=== PATIENT | female | born 1980 | race Hispanic/Latino ===

== ENCOUNTER 2019-11-12 13:00 | Outpatient (CLI) | payer BC ==
--- NOTE | 2019-11-12 14:44 | Cat Scan Report ---
CT head without contrast INDICATION : R51 CHRONIC HEADACHES. TECHNIQUE: Axial imaging performed from the skull apex through the skull base without the use of con trast. All CT scans at this location are performed using CT dose reduction for ALARA by means of aut omated exposure control. COMPARISON: None FINDINGS: Parenchyma: No acute intracranial hemorrhage or parenchymal abnormality. Ventricles: Ventricles are normal in size and appear symmetric. Soft tissues: Soft tissues including the orbits appear normal. Bones: No acute osseous abnormality. Sinuses: Sinuses and mastoid air cells are clear. IMPRESSION: No acute abnormality. Signer Name: Milton Patel MD Signed: 11/12/2019 2:40 PM Workstation Name: [id number]
== END 2019-11-12 13:01 | disposition home or self-care (01) ==
LOC: CT 13:00
PROVIDERS: ATTEND Family Medicine
DX: R51 Headache (principal)
CPT/HCPCS: 70450

== ENCOUNTER 2019-11-19 12:33 | Outpatient (CLI) | payer BC ==
--- NOTE | 2019-11-19 13:16 | Mammography Report ---
DIGITAL SCREENING MAMMOGRAM WITH CAD, 11/19/2019 INDICATION: Baseline screening mammography. TECHNIQUE: Digital bilateral 2D mammography was obtained in the craniocaudal and mediolateral obliq ue projections. This examination was interpreted with the benefit of Computer-Aided Detection analysi s. COMPARISON: None. FINDINGS: Breast Density: The breasts are heterogeneously dense, which may obscure small masses. Bilateral asymmetries require additional imaging. No architectural distortion or suspicious calcifica tions. IMPRESSION: Bilateral asymmetries requiring additional imaging. Recommend recall for bilateral latera l and bilateral spot compression views and bilateral breast ultrasound if needed Follow up recommendation: Special View: Spot Category 0: Incomplete. Needs additional imaging evaluation and/or prior mammograms for comparison. A "normal" or negative report should not discourage follow up or biopsy of a clinically significant f inding. A written summary of these findings will be mailed to the patient. The patient will be entered into a mammography reporting system which will generate a reminder letter for the patient's next appointmen t at the appropriate interval. The [employer] recommends yearly mammograms starting at age 40 and continuing as l bouchra as a woman is in good health. Breast MRI is recommended for women with an approximate 20-25% or greater lifetime risk of breast cancer, including women with a strong family history of breast or ova negra cancer or who have been treated for Hodgkin's disease. Signer Name: Jerald Porter MD Signed: 11/19/2019 1:11 PM Workstation Name: [id number]
== END 2019-11-19 12:34 | disposition home or self-care (01) ==
LOC: SPVWC 12:33
PROVIDERS: ATTEND Family Medicine
DX: Z12.31 Encounter for screening mammogram for malignant neoplasm of breast (principal)
CPT/HCPCS: 77067

== ENCOUNTER 2019-12-12 08:38 | Outpatient (CLI) | payer BC ==
--- NOTE | 2019-12-12 09:57 | Mammography Report ---
DIGITAL DIAGNOSTIC MAMMOGRAM WITH CAD, 12/12/2019 INDICATION: Recalled to evaluate asymmetries. ABNORMAL MAMMOGRAM TECHNIQUE: Digital bilateral mammographic imaging was performed. Spot compression views were obtaine d. This examination was interpreted with the benefit of Computer-aided Detection analysis. COMPARISON: 11/19/2019 FINDINGS: Breast Density: The breasts are heterogeneously dense, which may obscure small masses. Bilateral lateral and spot compression views were performed and are negative. Satisfactory effacement of asymmetries. IMPRESSION: No mammographic evidence of malignancy. Follow up recommendation: Routine yearly BI-RADS Category 1: Negative. A "normal" or negative report should not discourage follow up or biopsy of a clinically significant f inding. A written summary of these findings will be mailed to the patient. The patient will be entered into a mammography reporting system which will generate a reminder letter for the patient's next appointmen t at the appropriate interval. According to the [employer], yearly mammograms are recommended starting at age 40 and continuing as long as a woman is in good health. Breast MRI is recommended for women with an ronen roximately 20-25% or greater lifetime risk of breast cancer, including women with a strong family his tory of breast or ovarian cancer and women who have been treated for Hodgkin's disease. Signer Name: Jerald Porter MD Signed: 12/12/2019 9:52 AM Workstation Name: [id number]
== END 2019-12-12 08:39 | disposition home or self-care (01) ==
LOC: SPVWC 08:38
PROVIDERS: ATTEND Family Medicine
DX: R92.8 Other abnormal and inconclusive findings on diagnostic imaging of breast (principal)
CPT/HCPCS: 77066

== ENCOUNTER 2020-11-03 14:43 | Outpatient (CLI) | payer BC ==
--- NOTE | 2020-11-03 17:12 | Ultrasound Report ---
ULTRASOUND PELVIS INDICATION / CLINICAL INFORMATION: PELVIC AND PERINEAL PAIN/ POLYCYSTIC OVARIAN SYNDROME. TECHNIQUE: Transabdominal and Transvaginal. Duplex Color Doppler used: Yes. COMPARISON: None available FINDINGS: UTERUS: Uterus measures 8.3 cm in length and is retroverted. Endometrial stripe measures 8 mm. There are several nabothian cysts noted at the cervix. RIGHT ADNEXA: The right ovary measures 3 cm in length. There are multiple follicular cysts noted in t he periphery of the right ovary. These measure less than 1 cm in diameter. Normal color Doppler blood flow. LEFT ADNEXA: No significant ovarian cyst or mass. Normal color Doppler blood flow. URINARY BLADDER: No significant abnormality. FREE FLUID: There is a minimal amount of free fluid ADDITIONAL FINDINGS: None. IMPRESSION: 1. There are multiple small follicular cysts in both ovaries measuring less than 1 cm. Signer Name: Herbie Orona MD Signed: 11/03/2020 5:07 PM Workstation Name: [id number]
== END 2020-11-03 14:44 | disposition home or self-care (01) ==
LOC: SPVWC 14:43
PROVIDERS: ATTEND Family Medicine
DX: N83.02 Follicular cyst of left ovary (principal); N83.01 Follicular cyst of right ovary; N88.8 Other specified noninflammatory disorders of cervix uteri; E28.2 Polycystic ovarian syndrome
CPT/HCPCS: 76830; 76856

== ENCOUNTER 2020-11-26 13:48 | Outpatient (CLI) | payer BC ==
--- NOTE | 2020-11-30 08:27 | Mammography Report ---
DIGITAL SCREENING MAMMOGRAM WITH TOMOSYNTHESIS WITH CAD, 11/26/2020 CLINICAL INFORMATION / INDICATION: Routine Screening Mammography. TECHNIQUE: Digital bilateral 2D and 3D mammography with tomosynthesis was obtained in the craniocaud al and mediolateral oblique projections. Computer-Aided Detection (CAD) analysis was used for interp retation of this study. COMPARISON: 11/19/2019 FINDINGS: Breast Density: There are scattered areas of fibroglandular density. No dominant mass, suspicious calcifications, or architectural distortion in either breast. No interval change. IMPRESSION: No mammographic evidence of malignancy. Follow up recommendation: Routine yearly BI-RADS Category 1: Negative. A "normal" or negative report should not discourage follow up or biopsy of a clinically significant f inding. A written summary of these findings will be mailed to the patient. The patient will be entered into a mammography reporting system which will generate a reminder letter for the patient's next appointmen t at the appropriate interval. The [employer] recommends yearly mammograms starting at age 40 and continuing as l bouchra as a woman is in good health. Breast MRI is recommended for women with an approximate 20-25% or greater lifetime risk of breast cancer, including women with a strong family history of breast or ova negra cancer or who have been treated for Hodgkin's disease. Signer Name: Radha Cruz MD Signed: 11/30/2020 8:23 AM Workstation Name: [id number]
== END 2020-11-26 13:49 | disposition home or self-care (01) ==
LOC: SPVWC 13:48
PROVIDERS: ATTEND Family Medicine
DX: Z12.31 Encounter for screening mammogram for malignant neoplasm of breast (principal); N64.89 Other specified disorders of breast
CPT/HCPCS: 77063; 77067